=== PATIENT | female | born 1945 | race Caucasian/White ===

== ENCOUNTER 2018-01-14 19:12 | Emergency (ER) | payer MEDICARE, MEDICAID ==
[~2018-01-14] VITALS: Ht 162.6 cm; Wt 62.0 kg
[2018-01-14] MEDS ORDERED: KETOROLAC 30 MG/1 ML ONE (19:54)
[2018-01-14] MEDS ORDERED: DIAZEPAM 5 MG TABLET ONE (19:54)
[2018-01-14] MEDS ORDERED: DIAZEPAM 5 MG TABLET PO ONE (20:00)
[2018-01-14] MEDS ORDERED: KETOROLAC 30 MG/1 ML IM ONE (20:00)
[2018-01-14] MEDS ORDERED: LIDODERM 5% PATCH TD ONE (20:00)
[2018-01-14 20:49] VITALS: BP 135/74
== END 2018-01-14 20:50 | disposition home or self-care (01) ==
LOC: ED 19:40
DX: M54.42 Lumbago with sciatica, left side (principal); Z87.891 Personal history of nicotine dependence
CPT/HCPCS: 72110; 96372; 99284; J1885

== ENCOUNTER 2018-08-12 09:05 | Emergency (ER) | payer MEDICARE, MEDICAID ==
[~2018-08-12] VITALS: Ht 160 cm; Wt 67.0 kg
[2018-08-12] MEDS ORDERED: DIAZEPAM 5 MG TABLET ONE (10:55)
[2018-08-12] MEDS ORDERED: KETOROLAC 30 MG/1 ML ONE (10:55)
[2018-08-12] MEDS ORDERED: KETOROLAC 30 MG/1 ML IM ONE (11:00)
[2018-08-12] MEDS ORDERED: DIAZEPAM 5 MG TABLET PO ONE (11:00)
--- NOTE | 2018-08-12 11:11 | NUR ---
PT MEDICATED ORDERED FOR 03/21 PAIN
[2018-08-12 11:54] VITALS: BP 118/78
== END 2018-08-12 11:57 | disposition home or self-care (01) ==
LOC: ED 11:15
DX: S33.5XXA Sprain of ligaments of lumbar spine, initial encounter (principal); M43.16 Spondylolisthesis, lumbar region; M54.42 Lumbago with sciatica, left side; M54.41 Lumbago with sciatica, right side; M19.90 Unspecified osteoarthritis, unspecified site; X58.XXXA Exposure to other specified factors, initial encounter; Y93.89 Activity, other specified; Y92.89 Other specified places as the place of occurrence of the external cause; Y99.8 Other external cause status
CPT/HCPCS: 72110; 96372; 99283; J1885